=== PATIENT | male | born 1955 | race Caucasian/White ===

== ENCOUNTER 2020-11-14 18:35 | Emergency (ER) | payer MEDICARE, OTHER ==
--- NOTE | 2020-11-14 20:10 | EDM.PDOC ---
ED HPI GENERAL MEDICAL PROBLEM - General Chief Complaint: General Stated Complaint: LEFT BEHIND KNEE CALF SORE Time Seen by Provider: 11/14/20 19:05 Source of Information: Reports: Patient, Family () History Limitations: Reports: No Limitations - History of Present Illness INITIAL COMMENTS - FREE TEXT/NARRATIVE: 65 yo male presents emergency room with complaints of left calf pain and swelling. Patient feels small central area of redness consistent with possible bug bite and swelling surrounding that. He has been experiencing pain in the left calf today. He status post right ankle arthroplasty by Dr. Miranda 4 weeks ago. He is on a baby aspirin. He has no history of DVTs. He denies any fever or chills. Denies any shortness of breath complaints.. He noticed that the symptoms started today at around 3:00. Onset: Today Onset Date: 11/14/20 Onset Time: 15:00 Duration: Hour(s):, Constant Location: Reports: Lower Extremity, Left Quality: Reports: Ache, Dull Severity: Mild Improves with: Reports: None Worsens with: Reports: Movement (Stretching and walking) Associated Symptoms: Reports: No Other Symptoms Treatments POULTRY PATHOLOGIST: Reports: Other Medication(s) Other Treatments POULTRY PATHOLOGIST: anti-itch cream - Related Data Allergies Allergy/AdvReac Type Severity Reaction Status Date / Time No Known Allergies Allergy Verified 11/14/20 18:49 Home Meds: Home Meds Aspirin [Halfprin] 81 mg PO DAILY 11/14/20 [History] Mcgrew-3 Fatty Acids/Fish Oil [Fish Oil 1,000 mg Capsule] 1 each PO DAILY 11/14/20 [History] Rosuvastatin [Crestor] 5 mg PO DAILY 11/14/20 [History] Past Medical History HEENT History: Reports: Impaired Vision Cardiovascular History: Reports: High Cholesterol Respiratory History: Reports: None Gastrointestinal History: Reports: None Genitourinary History: Reports: None Musculoskeletal History: Reports: Arthritis Neurological History: Reports: None Psychiatric History: Reports: None Endocrine/Metabolic History: Reports: None Hematologic History: Reports: None Immunologic History: Reports: None Oncologic (Cancer) History: Reports: None Dermatologic History: Reports: None - Infectious Disease History Infectious Disease History: Reports: Chicken Pox, Novel Coronavirus, Shingles - Past Surgical History Head Surgeries/Procedures: Reports: None HEENT Surgical History: Reports: None Cardiovascular Surgical History: Reports: None GI Surgical History: Reports: Colonoscopy Endocrine Surgical History: Reports: None Neurological Surgical History: Reports: None Musculoskeletal Surgical History: Reports: Knee Replacement Other Musculoskeletal Surgeries/Procedures:: right ankle replacement Social & Family History - Tobacco Use Tobacco Use Status *Q: Never Tobacco User - Caffeine Use Caffeine Use: Reports: Coffee - Recreational Drug Use Recreational Drug Use: No ED ROS GENERAL - Review of Systems Review Of Systems: See Below Constitutional: Reports: No Symptoms HEENT: Reports: No Symptoms Respiratory: Reports: No Symptoms Cardiovascular: Reports: No Symptoms Endocrine: Reports: No Symptoms GI/Abdominal: Reports: No Symptoms : Reports: No Symptoms Musculoskeletal: Reports: Muscle Pain (Left calf) Skin: Reports: No Symptoms Neurological: Reports: No Symptoms Psychiatric: Reports: No Symptoms Hematologic/Lymphatic: Reports: No Symptoms Immunologic: Reports: No Symptoms ED EXAM, GENERAL - Physical Exam Exam: See Below Exam Limited By: No Limitations General Appearance: Alert, WD/WN, No Apparent Distress Nose: Normal Inspection Throat/Mouth: Normal Voice, No Airway Compromise Head: Atraumatic Back Exam: Normal Inspection Extremities: Kiran's Sign, Leg Pain, Increased Warmth, Other (Mild left calf sw elling with tenderness centrally of the gastrocnemius muscle. Patient has increased pain with passive stretch.). No: Redness Neurological: Alert, Oriented, No Motor/Sensory Deficits Psychiatric: Normal Affect, Normal Mood Skin Exam: Warm, Dry, Intact, Normal Color, Increased Warmth. No: Erythema Lymphatic: No Adenopathy Course - Vital Signs Last Recorded V/S: Last Vital Signs Temp 97.9 F 11/14/20 18:38 Pulse 68 11/14/20 18:38 Resp 16 11/14/20 18:38 BP 134/88 11/14/20 18:38 Pulse Ox 94 L 11/14/20 18:38 Departure - Departure Time of Disposition: 20:18 Disposition: Home, Self-Care 01 Condition: Good Clinical Impression: Calf swelling, Pain of left calf - Discharge Information Instructions: Deep Vein Thrombosis, Venous Thromboembolism Prevention Referrals: Tosin Alegria MD [Primary Care Provider] - Forms: ED Department Discharge Care Plan Goals: 1. doppler u/s left leg in [facility] radiology department. 2. Continue with Aspirin 81mg Daily. 3. f/u with Primary care on Monday for clinical recheck. Sepsis Event Note (ED) - Evaluation Sepsis Screening Result: No Definite Risk - Focused Exam Vital Signs: Vital Signs Temp Pulse Resp BP Pulse Ox 11/14/20 18:38 97.9 F 68 16 134/88 94 L - Assessment/Plan Assessment:: Left calf pain/swelling Plan: 1. doppler u/s left leg in [facility] radiology department. 2. Continue with Aspirin 81mg Daily. 3. f/u with Primary care on Monday for clinical recheck.
== END 2020-11-14 20:05 | disposition home or self-care (01) ==
LOC: KA.ED 18:35
DX: R22.42 Localized swelling, mass and lump, left lower limb (principal); M79.662 Pain in left lower leg; E78.00 Pure hypercholesterolemia, unspecified; M19.90 Unspecified osteoarthritis, unspecified site; Z79.82 Long term (current) use of aspirin; Z79.899 Other long term (current) drug therapy
CPT/HCPCS: 99283

== ENCOUNTER 2023-02-28 09:42 | Day surgery (SDC) | payer MEDICARE, OTHER ==
[2023-02-28] MEDS ORDERED: Lactated Ringers 1,000 ML IV SCH (10:00)
[2023-02-28] MEDS ORDERED: Sodium Chloride 0.9% 10 ML Syringe FLUSH PRN (10:00)
[2023-02-28] MEDS ORDERED: Midazolam 1 MG/ML 2 ML SDV ONE (10:33)
[2023-02-28] MEDS ORDERED: Propofol 200 MG/20 ML SDV ONE (10:33)
== END 2023-02-28 12:25 | disposition home or self-care (01) ==
LOC: KA.SDS 09:42
PROVIDERS: ATTEND Family Medicine
DX: Z12.11 Encounter for screening for malignant neoplasm of colon (principal); K57.30 Diverticulosis of large intestine without perforation or abscess without bleeding; R73.03 Prediabetes; E78.2 Mixed hyperlipidemia; E66.9 Obesity, unspecified; Z68.38 Body mass index [BMI] 38.0-38.9, adult; Z79.899 Other long term (current) drug therapy
CPT/HCPCS: 00812; J2250; J2704; J7120